=== PATIENT | male | born 1945 ===

== ENCOUNTER 2024-10-20 12:19 | Outpatient (RCR) | payer MEDICARE, SELFPAY | END 2024-10-20 23:59 | disposition home or self-care (01) | LOC: ROT 12:19 | PROVIDERS: ATTENDING PHYSICIAN Psychiatry & Neurology Neurology; FAMILY PHYSICIAN Physician Assistant | DX: G25.0 Essential tremor (principal); Z73.6 Limitation of activities due to disability | CPT/HCPCS: 97110; 97166; 97535 ==

== ENCOUNTER 2024-11-10 12:18 | Outpatient (RCR) | payer MEDICARE, SELFPAY | END 2024-11-10 23:59 | disposition home or self-care (01) | LOC: ROT 12:18 | PROVIDERS: ATTENDING PHYSICIAN Psychiatry & Neurology Neurology; FAMILY PHYSICIAN Physician Assistant | DX: G25.0 Essential tremor (principal); Z73.6 Limitation of activities due to disability | CPT/HCPCS: 97110; 97535 ==

== ENCOUNTER → 2024-11-18 12:32 | Outpatient (REF) | payer MEDICARE, SELFPAY | LOC: PAVMRI 12:32 | PROVIDERS: ATTENDING PHYSICIAN Psychiatry & Neurology Neurology; PRIMARYCARE PHYSICIAN Physician Assistant | DX: R25.1 Tremor, unspecified (principal) | CPT/HCPCS: 70553; A9575 ==